=== PATIENT | female | born 1960 | race Caucasian/White ===

== ENCOUNTER 2017-10-03 22:30 | Emergency (ER) | payer MEDICAID ==
[~2017-10-03] VITALS: Ht 162.6 cm; Wt 74.4 kg
[2017-10-03 22:35] VITALS: BP 122/85
[2017-10-03] MEDS ORDERED: SYN.05 PO (22:40)
--- NOTE | 2017-10-03 22:42 | NUR ---
57/F CAME IN W C/O 04/27 LEFT LOWER LEG PAIN X 2 DAYS AGO. HX OF CELLULITIS TO LT LEG, WAS TREATED WITH ANTIBIOTICS FOR 3 WEEKS, ATB COURSE COMPLETED. PT STATES SHE WOKE UP AND THE LEG WAS THROBBING. LEFT LOWER LEG NOTED WITH MILD SWELLING AND RED STREAK MEDIALLY LLE, +PMSC, COOL TO TOUCH. PT AFEBRILE. PMH: HYPOTHYROIDISM, DENIES OTC
--- NOTE | 2017-10-03 22:42 | NUR ---
AMBULATED TO ER BED 12
--- NOTE | 2017-10-03 22:44 | NUR ---
Patient being evaluated by physician at bedside.
[2017-10-03] MEDS ORDERED: SULFAMETH/TRIMETH DS 800/160MG 1 TAB PO ONE (22:50)
[2017-10-03] MEDS ORDERED: CEPHALEXIN 500 MG CAP PO ONE (22:50)
[2017-10-03] MEDS ORDERED: IBUPROFEN 800 MG TAB PO ONE (22:50)
[2017-10-03 23:25] VITALS: BP 126/72
--- NOTE | 2017-10-03 23:25 | NUR ---
Patient discharged with v/s stable. Written and verbal after care instructions given and explained. Patient alert, oriented and verbalized understanding of instructions. Ambulatory with steady gait. All questions addressed prior to discharge. ID band removed. Patient advised to follow up with PMD. Rx of KEFLEX, MOTRIN AND BACTRIM DS given. Patient educated on indication of medication including possible reaction and side effects. Opportunity to ask questions provided and answered.
== END 2017-10-03 23:25 | disposition home or self-care (01) ==
LOC: MED 22:30
DX: L03.115 Cellulitis of right lower limb (principal); R03.0 Elevated blood-pressure reading, without diagnosis of hypertension; E03.9 Hypothyroidism, unspecified; Z79.899 Other long term (current) drug therapy
CPT/HCPCS: 99284

== ENCOUNTER 2017-10-12 01:59 | Emergency (ER) | payer MEDICAID ==
[~2017-10-12] VITALS: Ht 160 cm; Wt 73.6 kg
[~2017-10-12 01:59] MED LIST: SYN.05 PO
[2017-10-12 02:11] VITALS: BP 148/87
--- NOTE | 2017-10-12 04:24 | NUR ---
PT TAKEN TO BED 11
--- NOTE | 2017-10-12 04:33 | NUR ---
57Y/F PT. PRESENTS TO ED WITH C/O LT. ANKLE PAIN ON AND OFF. PT. WAS SEEN ON 10/04/17 WITH DIAGNOSED LT. ANKLE INFECTION ON KEFLEX. TODAY PAIN INCREASES. HX. VENOUS INSUFFICIENCY, HYPOTHYROIDISM. AAO X4, AMBULATORY WITH STEADY GAIT. LT. ANKLE MILD SWALLEN, NO REDNESS NOR DRAINAGE AT THIS TIME. C/O PAIN 05/27. VSS, ER MADE AWARE OF PT. STATUS.
--- NOTE | 2017-10-12 04:48 | NUR ---
Patient being evaluated by at bedside.
--- NOTE | 2017-10-12 07:20 | NUR ---
Patient discharged with v/s stable. Written and verbal after care instructions given and explained. Patient verbalized understanding. Ambulatory with steady gait. All questions addressed prior to discharge. Advised to follow up with PMD.
[2017-10-12 07:21] VITALS: BP 131/83
== END 2017-10-12 07:20 | disposition home or self-care (01) ==
LOC: MED 01:59
DX: M25.472 Effusion, left ankle (principal); F41.9 Anxiety disorder, unspecified; Z88.5 Allergy status to narcotic agent; Z88.8 Allergy status to other drugs, medicaments and biological substances
CPT/HCPCS: 99283